=== PATIENT | female | born 1980 | race Two or more races ===

== ENCOUNTER 2017-06-01 20:55 | Inpatient (IN) | payer OTHER ==
[~2017-06-01] VITALS: Ht 160 cm; Wt 66.0 kg
[2017-06-01] MEDS: D5%-LACTATED RINGERS 1,000 ML IV SCH (21:15)
[2017-06-01] MEDS ORDERED: OXYTOCIN 30U/ 0.9% NaCL 500ML 500 ML IV ONE (21:15)
[2017-06-01] MEDS ORDERED: OXYTOCIN 30U/ 0.9% NaCL 500ML 500 ML ONE (21:19)
[2017-06-01] MEDS ORDERED: NEWBORN KIT ONE (21:19)
[2017-06-01] MEDS ORDERED: FENTANYL/BUPIV./NS/PF 250 ML EPIDCONT ONE (21:21)
[2017-06-01] MEDS ORDERED: BUPIVACAINE/PF 0.25% ONE (21:21)
[2017-06-01] MEDS ORDERED: FENTANYL/BUPIV./NS/PF 250 ML EPIDCONT SCH (21:28)
[2017-06-01] MEDS ORDERED: ONDANSETRON 2MG/ML, 2ML IVPush PRN (21:30)
[2017-06-01] MEDS ORDERED: FENTANYL PF 100 MCG/2ML IVPush PRN (21:30)
[2017-06-01] MEDS ORDERED: EPHEDRINE 50 MG/ML, 1ML IVPush PRN (21:30)
[2017-06-01] MEDS ORDERED: LACTATED RINGERS 1,000 ML IVBOLUS PRN (21:30)
[2017-06-01] MEDS ORDERED: NALOXONE 0.4 MG/ML, 1ML IVPush PRN (21:30)
[2017-06-01] MEDS ORDERED: CALCIUM CARBONATE 500 MG TAB.CHEW PO PRN (21:30)
[2017-06-01] MEDS ORDERED: FENTANYL PF 100 MCG/2ML IV PRN (21:30)
[2017-06-01] MEDS ORDERED: TERBUTALINE 1 MG/ML, 1ML IVPush PRN (21:30)
[2017-06-01 21:41] LABS: HEMATOCRIT 39.3 % (34.6-47.8); HEMOGLOBIN 13.5 g/dL (11.7-16.4); WHITE BLOOD COUNT 10.9 x10^3/uL (3.4-10)
[2017-06-01] MEDS: LACTATED RINGERS 1,000 ML IV SCH (22:21)
[2017-06-02] MEDS: LACTATED RINGERS 1,000 ML IV SCH ×6 (01:05→21:28)
[2017-06-02] MEDS: D5%-LACTATED RINGERS 1,000 ML IV SCH ×2 (05:15→13:15)
[2017-06-02] MEDS: OXYTOCIN 30U/ 0.9% NaCL 500ML 500 ML IV SCH ×2 (11:22→21:22)
[2017-06-02] MEDS ORDERED: ONDANSETRON 2MG/ML, 2ML IV PRN (11:30)
[2017-06-02] MEDS ORDERED: MISOPROSTOL 200 MCG TABLET PO PRN (11:30)
[2017-06-02] MEDS ORDERED: ACETAMINOPHEN 325 MG TABLET PO PRN (11:30)
[2017-06-02] MEDS ORDERED: OXYcodone IR 5MG TABLET PO PRN (11:30)
[2017-06-02] MEDS ORDERED: OXYcodone/APAP 5/325MG TABLET PO PRN (11:30)
[2017-06-02 13:45] VITALS: BP 104/71
[2017-06-02 16:00] VITALS: BP 108/72
[2017-06-02 19:02] LABS: HEMOGLOBIN 10.4 g/dL (11.7-16.4); WHITE BLOOD COUNT 13.4 x10^3/uL (3.4-10)
[2017-06-02 19:30] VITALS: BP 124/77
[2017-06-03] MEDS: IBUPROFEN 800 MG TABLET PO PRN ×3 (00:40→17:34)
[2017-06-03 00:45] VITALS: BP 108/66
[2017-06-03 04:10] VITALS: BP 105/66
[2017-06-03] MEDS: LACTATED RINGERS 1,000 ML IV SCH ×3 (05:28→21:28)
[2017-06-03 07:20] VITALS: BP 114/73
[2017-06-03] MEDS: OXYTOCIN 30U/ 0.9% NaCL 500ML 500 ML IV SCH ×2 (07:22→17:22)
[2017-06-03] MEDS: DOCUSATE 100 MG CAPSULE PO PRN ×2 (08:43→17:34)
[2017-06-03] MEDS: PRENATAL VIT/IRON/FA 1 EACH TABLET PO SCH (08:43)
[2017-06-03 20:00] VITALS: BP 113/78
[2017-06-04] MEDS: OXYTOCIN 30U/ 0.9% NaCL 500ML 500 ML IV SCH (03:22)
[2017-06-04] MEDS: IBUPROFEN 800 MG TABLET PO PRN (05:04)
[2017-06-04] MEDS: LACTATED RINGERS 1,000 ML IV SCH (05:28)
[2017-06-04 07:30] VITALS: BP 129/82
[2017-06-04] MEDS: PRENATAL VIT/IRON/FA 1 EACH TABLET PO SCH (08:17)
[2017-06-04] MEDS: DOCUSATE 100 MG CAPSULE PO PRN (08:17)
[2017-06-04] MEDS ORDERED: FLU VACC QS2017-18 (36MOS+) UP/PF 0.5 ML IM-VACC ONE (10:00)
[2017-06-04] MEDS ORDERED: IBUP-1222 PO (10:19)
[2017-06-04] MEDS ORDERED: OXYC-302 PO (10:20)
== END 2017-06-04 15:17 | disposition home or self-care (01) | DRG 775 ==
LOC: LDOP 20:55 → LDIP 21:18 → 2NW 06-02 13:43
PROVIDERS: ADMIT Obstetrics & Gynecology; ATTEND Obstetrics & Gynecology
PROC: 0KQM0ZZ Repair Perineum Muscle, Open Approach (ICD-10-PCS; principal; 2017-06-02)
PROC: 10E0XZZ Delivery of Products of Conception, External Approach (ICD-10-PCS; 2017-06-02)
PROC: 3E0R3BZ Introduction of Anesthetic Agent into Spinal Canal, Percutaneous Approach (ICD-10-PCS; 2017-06-02)
PROC: 00HU33Z Insertion of Infusion Device into Spinal Canal, Percutaneous Approach (ICD-10-PCS; 2017-06-02)
DX: O24.420 Gestational diabetes mellitus in childbirth, diet controlled (principal); O70.1 Second degree perineal laceration during delivery; Z37.0 Single live birth; Z3A.37 37 weeks gestation of pregnancy
CPT/HCPCS: 36415; 85025; 86850; 86900; 90686; J3490; J3010; J7120

== ENCOUNTER 2019-12-20 15:11 | Outpatient (CLI) | payer OTHER ==
[~2019-12-20 15:11] MED LIST: IBUP-1222 PO; OXYC-302 PO
== END 2019-12-20 23:59 | disposition home or self-care (01) ==
LOC: CFH 15:11
PROVIDERS: ATTEND Obstetrics & Gynecology
DX: Z12.31 Encounter for screening mammogram for malignant neoplasm of breast (principal)
CPT/HCPCS: 77067